=== PATIENT | female | born 1955 | race African-American/Black ===

== ENCOUNTER 2018-01-24 09:34 | Emergency (ER) | payer MEDICARE, MEDICAID ==
[~2018-01-24] VITALS: Ht 160 cm; Wt 100.0 kg
[2018-01-24 09:37] VITALS: BP 146/86
[2018-01-24] MEDS ORDERED: HALO100A IM (09:38)
== END 2018-01-24 13:10 | disposition home or self-care (01) ==
LOC: ER 10:47
DX: S93.492A Sprain of other ligament of left ankle, initial encounter (principal); I50.9 Heart failure, unspecified; F41.9 Anxiety disorder, unspecified; W01.0XXA Fall on same level from slipping, tripping and stumbling without subsequent striking against object, initial encounter; Y93.89 Activity, other specified; Y92.89 Other specified places as the place of occurrence of the external cause; Y99.8 Other external cause status
CPT/HCPCS: 73610; 99284